=== PATIENT | female | born 2000 | race Two or more races ===

== ENCOUNTER 2023-03-13 09:25 | Outpatient (CLI) | payer OTHER, SELFPAY ==
[2023-03-13 10:20] LABS: Cholesterol 185 mg/dL (0-200); HDL Direct 37 mg/dL; Triglycerides 114 mg/dL (<150)
[2023-03-13 10:21] LABS: Hemoglobin A1C 5.6 % (<5.7)
[2023-03-13 10:40] LABS: LDL Cholesterol Direct 120 mg/dL
[2023-03-16 08:47] LABS: DHEA-Sulfate 258 mcg/dL (51-321)
[2023-03-17 07:21] LABS: FSH 5.7 mIU/mL (***); LH 8.3 mIU/mL (***)
[2023-03-18 11:13] LABS: Testosterone Free 7.5 pg/mL (0.2-5.0); Testosterone Total 45 ng/dL (2-45)
[2023-03-19 22:07] LABS: Estradiol, Ultrasensitive 40 pg/mL
== END 2023-03-13 09:26 | disposition home or self-care (01) ==
LOC: ANHLAB 09:30
PROVIDERS: PCP Student in an Organized Health Care Education/Training Program; Visit Provider Student in an Organized Health Care Education/Training Program
DX: E28.2 Polycystic ovarian syndrome (principal)
CPT/HCPCS: 36415; 80061; 82627; 82670; 83001; 83002; 83036; 84402; 84403; 84443